=== PATIENT | male | born 1985 | race Hispanic/Latino ===

== ENCOUNTER 2017-07-10 03:54 | Emergency (ER) | payer SELFPAY ==
[2017-07-10] MEDS ORDERED: Ketorolac Tromethamine 60 MG/2 ML VIAL ONE (04:34)
== END 2017-07-10 04:55 | disposition home or self-care (01) ==
LOC: NAV ERS 03:54
DX: M54.2 Cervicalgia (principal); M54.5 Low back pain; M54.6 Pain in thoracic spine; V43.52XA Car driver injured in collision with other type car in traffic accident, initial encounter
CPT/HCPCS: 96372; J1885